=== PATIENT | male | born 1980 | race Caucasian/White ===

== ENCOUNTER 2017-05-06 09:15 | Emergency (ER) | payer MEDICAID | END 2017-05-06 09:55 | disposition home or self-care (01) | LOC: D.ER 09:15 | DX: S82.832A Other fracture of upper and lower end of left fibula, initial encounter for closed fracture (principal); X58.XXXA Exposure to other specified factors, initial encounter; Y93.89 Activity, other specified; Y92.89 Other specified places as the place of occurrence of the external cause; F32.9 Major depressive disorder, single episode, unspecified; F17.200 Nicotine dependence, unspecified, uncomplicated ==

== ENCOUNTER 2018-02-07 17:59 | Emergency (ER) | payer MEDICAID | END 2018-02-07 19:56 | disposition left against medical advice (07) | LOC: D.ER 17:59 | DX: M54.2 Cervicalgia (principal) ==